=== PATIENT | female | born 1975 | race Caucasian/White ===

== ENCOUNTER 2016-04-30 20:58 | Emergency (ER) | payer OTHER ==
[2016-04-30 21:32] VITALS: BP 126/72
--- NOTE | 2016-04-30 21:56 | UC ---
Lower Extremity/Ankle HPI - HPI Summary HPI Summary: dropped shop vac on her left foot last night, with swelling and pain. Today she has persistent pain with weight bearing despite ibuprofen, last used 400mg several hours ago. Feels unable to weight bear and is concerned about causing more harm by poor weight bearing. - History of Current Complaint Chief Complaint: UCLowerExtremity Stated Complaint: LEFT FOOT PAIN/INJURY Time Seen by Provider: 04/30/16 21:44 Hx Obtained From: Patient Hx Last Menstrual Period: 2 weeks ?: No Onset/Duration: Sudden Onset, Lasting Days - 1 Severity Initially: Moderate Severity Currently: Moderate Pain Intensity: 7 Pain Scale Used: 0-10 Numeric Aggravating Factor(s): Standing, Ambulation Alleviating Factor(s): Rest, OTC Meds Able to Bear Weight: Yes - Risk Factors Gout Risk Factors: Negative DVT Risk Factors: Negative - Allergies/Home Medications Allergies/Adverse Reactions: Allergies Allergy/AdvReac Type Severity Reaction Status Date / Time Chocolate Allergy Hives Verified 04/30/16 21:32 seasonal Allergy Itching Uncoded 04/30/16 21:32 PMH/Surg Hx/FS Hx/Imm Hx Respiratory History Of: Reports: Asthma GI/ History Of: Reports: Gastroesophageal Reflux Psychological History Of: Reports: Anxiety, Depression - Surgical History Surgical History: Yes Surgery Procedure, Year, and Place: gallbladder - Family History Known Family History: Positive: Other - son with autism Negative: Cardiac Disease, Hypertension, Diabetes - Social History 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 Alcohol Use: None Substance Use Type: None Smoking Status (MU): Former Smoker Type: Cigarettes Amount Used/How Often: 1/2 PPD Length of Time of Smoking/Using Tobacco: 15 YEARS Have You Smoked in the Last Year: No When Did the Patient Quit Smoking/Using Tobacco: 2012 - Immunization History Most Recent Influenza Vaccination: no Most Recent Tetanus Shot: 11/2012 Hx Tetanus, Diphtheria Vaccination: Yes Vaccination Up to Date: Yes Review of Systems Constitutional: Negative Skin: Negative Eyes: Negative ENT: Negative Respiratory: Negative Cardiovascular: Negative Gastrointestinal: Negative Genitourinary: Negative Motor: Negative Neurovascular: Negative Musculoskeletal: Arthralgia - left foot pain Neurological: Negative Psychological: Anxious All Other Systems Reviewed And Are Negative: Yes Physical Exam Triage Information Reviewed: Yes Appearance: Well-Appearing, Pain Distress - mild Vital Signs: Initial Vital Signs Temp 99.3 F 04/30/16 21:24 Pulse 74 04/30/16 21:24 Resp 18 04/30/16 21:24 BP 126/72 04/30/16 21:24 ENT Exam: Normal Respiratory Exam: Normal Respiratory: Positive: Lungs clear Cardiovascular Exam: Normal Musculoskeletal: Positive: ROM Intact - full rom in left ankle, subtalar joint. Neurological Exam: Normal Neurological: Positive: Alert Psychological Exam: Normal Skin Exam: Normal Diagnostics - Laboratory Diagnostic Studies Completed/Ordered: pending radiology read, per negative for fracture. Lower Extremity Course/Dx - Course Course Of Treatment: rest, ice, analgesics. - Differential Dx/Diagnosis Differential Diagnosis/HQI/PQRI: Contusion, Fracture (Closed), Sprain Provider Diagnoses: left foot contusion Discharge - Discharge Plan Condition: Stable Disposition: HOME Patient Education Materials: Foot Contusion (ED) Additional Instructions: apply ice 2 or three times per day If there is a difference in the radiology read I will call you tomorrow. Use crutches as needed for support.
--- NOTE | 2016-04-30 22:21 | RAD ---
Indication: Left foot pain and swelling after trauma 3 views of left foot demonstrates no definite fracture. No other bone or joint abnormality is noted. IMPRESSION: No fracture of the foot is noted.
== END 2016-04-30 22:35 | disposition home or self-care (01) ==
LOC: UCCORT 20:58
DX: S90.32XA Contusion of left foot, initial encounter (principal); W20.8XXA Other cause of strike by thrown, projected or falling object, initial encounter; Y93.9 Activity, unspecified; Y92.9 Unspecified place or not applicable; Z87.891 Personal history of nicotine dependence
CPT/HCPCS: 99213; G0463

== ENCOUNTER 2016-09-03 12:20 | Emergency (ER) | payer OTHER ==
[2016-09-03 14:22] VITALS: BP 127/72
[2016-09-03] MEDS ORDERED: cefTRIAXone VIAL(*) 1,000 MG VIAL IM ONE (14:38)
[2016-09-03] MEDS ORDERED: Lidocaine 1% MPF* 2 ML VIAL INJ ONE (14:39)
--- NOTE | 2016-09-03 14:45 | UC ---
Skin Complaint HPI - HPI Summary HPI Summary: pt presents with c/o of bilateral pilonidal cysts that began 1 week ago. pt reports that cysts have worsened since onset 1 week ago and now has c/o of chills, increased pain, and malaise. - History of Current Complaint Chief Complaint: UCSkin Time Seen by Provider: 09/03/16 14:26 Stated Complaint: SKIN CONCERN Hx Obtained From: Patient Hx Last Menstrual Period: 1 wk ago ?: No Onset/Duration: Gradual Onset, Lasting Days - 7 Skin Exposure Onset/Duration: Days Ago - 7 Timing: Constant Onset Severity: Mild Current Severity: Moderate Location: Discrete - upper buttocks, pilonidal Character: Painful Aggravating: Touch Associated Signs & Symptoms: Positive: Fever, Chills, Tenderness - Allergy/Home Medications Allergies/Adverse Reactions: Allergies Allergy/AdvReac Type Severity Reaction Status Date / Time Adhesive Tape Allergy Rash Verified 09/03/16 14:09 Chocolate Allergy Hives Verified 09/03/16 14:09 seasonal Allergy Itching Uncoded 09/03/16 14:09 Home Medications: Home Medications FLUoxetine CAP* [PROzac CAP*] 20 mg PO DAILY 09/03/16 [History Confirmed ] Mometasone NASAL (NF) [Nasonex (NF)] 1 spray BOTH NARES DAILY 09/03/16 [History Confirmed 09/03/16] Review of Systems Constitutional: Fever, Chills Skin: Other - pilonidal cysts Eyes: Negative ENT: Negative Respiratory: Negative Cardiovascular: Negative Gastrointestinal: Negative Genitourinary: Negative Motor: Negative Neurovascular: Negative Musculoskeletal: Negative Neurological: Negative Psychological: Negative All Other Systems Reviewed And Are Negative: Yes PMH/Surg Hx/FS Hx/Imm Hx Previously Healthy: Yes - anxiety Psychological History: Anxiety - Surgical History Surgical History: Yes Surgery Procedure, Year, and Place: gallbladder - Family History Known Family History: Positive: Unknown, Other - son with autism Negative: Cardiac Disease, Hypertension, Diabetes - Social History Alcohol Use: None Substance Use Type: None Smoking Status (MU): Former Smoker Type: Cigarettes Amount Used/How Often: 1/2 PPD Length of Time of Smoking/Using Tobacco: 15 YEARS Have You Smoked in the Last Year: No When Did the Patient Quit Smoking/Using Tobacco: 2012 - Immunization History Most Recent Influenza Vaccination: no Most Recent Tetanus Shot: 11/2012 Hx Tetanus, Diphtheria Vaccination: Yes Vaccination Up to Date: Yes Physical Exam Triage Information Reviewed: Yes Appearance: Ill-Appearing Vital Signs: Initial Vital Signs Temp 100.2 F 09/03/16 14:12 Pulse 97 09/03/16 14:12 Resp 16 09/03/16 14:12 BP 127/72 09/03/16 14:12 Pulse Ox 100 09/03/16 14:12 Vital Signs Reviewed: Yes Eye Exam: Normal Neck exam: Normal Respiratory Exam: Normal Cardiovascular: Positive: Tachycardia - 97 Musculoskeletal Exam: Normal Neurological Exam: Normal Psychological Exam: Normal Skin Exam: Other - firm fluctuant 3 cm long and 2 cm wide pilonidal cysts bialteral upper buttocks Course/Dx - Differential Diagnoses - Skin Complaint Differential Diagnoses: Abscess, Other - sepsis - Diagnoses Provider Diagnoses: pilonidal cysts. possible sepsis - Physician Notification/Consults Discussed Patient Care With: Dr. Buckner at [facility] @ 7110 Time Discussed With Above Provider: 14:48 Instructed by Provider To: Transfer - to [facility] accpeted by Dr. Buckner Discharge - Discharge Plan Condition: Stable Disposition: [facility] Discharge Disposition Comment: pt was referred to [facility] for further work up for sepsis. Patient Education Materials: Pilonidal Cyst (ED), Acute Wounds (ED) Referrals: Mynor Sesay [Primary Care Provider] - If Needed
== END 2016-09-03 14:54 | disposition short-term general hospital (02) ==
LOC: UCCORT 12:20
DX: L05.91 Pilonidal cyst without abscess (principal); F41.9 Anxiety disorder, unspecified; Z90.49 Acquired absence of other specified parts of digestive tract; Z87.891 Personal history of nicotine dependence
CPT/HCPCS: 99213; G0463

== ENCOUNTER 2017-01-22 08:11 | Emergency (ER) | payer OTHER ==
[2017-01-22 08:55] VITALS: BP 100/64
[2017-01-22] MEDS ORDERED: Penicillin G Benzathine 1.2MU* 1,200,000 UNITS/2 ML SYR IM ONE (09:12)
--- NOTE | 2017-01-22 09:12 | UC ---
Throat Pain/Nasal [place] HPI - HPI Summary HPI Summary: SORE THROAT SINCE YESTERDAY. PAINFUL TO SWALLOW.NO COUGH. FELT FEVERISH LAST NIGHT. NO VOMITING. - History of Current Complaint Chief Complaint: UCRespiratory Stated Complaint: SORE THROAT Time Seen by Provider: 01/22/17 08:26 Hx Obtained From: Patient Hx Last Menstrual Period: 01/09/17 Onset/Duration: Sudden Onset, Lasting Days Severity: Moderate Associated Signs & Symptoms: Positive: Dysphagia, Fever - Allergies/Home Medications Allergies/Adverse Reactions: Allergies Allergy/AdvReac Type Severity Reaction Status Date / Time Adhesive Tape Allergy Rash Verified 01/22/17 08:42 Chocolate Allergy Hives Verified 01/22/17 08:42 seasonal Allergy Itching Uncoded 01/22/17 08:42 PMH/Surg Hx/FS Hx/Imm Hx Previously Healthy: Yes - Surgical History Surgical History: Yes Surgery Procedure, Year, and Place: gallbladder - Family History Known Family History: Positive: Unknown, Other - son with autism Negative: Cardiac Disease, Hypertension, Diabetes - Social History Alcohol Use: None Substance Use Type: None Smoking Status (MU): Former Smoker Type: Cigarettes Amount Used/How Often: 1/2 PPD Length of Time of Smoking/Using Tobacco: 15 YEARS Have You Smoked in the Last Year: No When Did the Patient Quit Smoking/Using Tobacco: 2012 - Immunization History Most Recent Influenza Vaccination: no Most Recent Tetanus Shot: 11/2012 Hx Tetanus, Diphtheria Vaccination: Yes Vaccination Up to Date: Yes Review of Systems Constitutional: Fever, Fatigue Skin: Negative Eyes: Negative ENT: Sore Throat Respiratory: Negative Cardiovascular: Negative Gastrointestinal: Negative Genitourinary: Negative Motor: Negative Neurovascular: Negative Musculoskeletal: Negative Neurological: Negative Psychological: Negative Is Patient Immunocompromised?: No All Other Systems Reviewed And Are Negative: Yes Physical Exam Triage Information Reviewed: Yes Appearance: Well-Nourished, Ill-Appearing, Pain Distress Vital Signs: Initial Vital Signs Temp 98.7 F 01/22/17 08:43 Pulse 88 01/22/17 08:43 Resp 16 01/22/17 08:43 BP 100/64 01/22/17 08:43 Pulse Ox 98 01/22/17 08:43 Vital Signs Reviewed: Yes Eye Exam: Normal Eyes: Positive: Conjunctiva Clear ENT: Positive: Pharyngeal erythema, Tonsillar swelling, Tonsillar exudate Dental Exam: Normal Neck exam: Normal Neck: Positive: Supple, Nontender, No Lymphadenopathy Respiratory Exam: Normal Respiratory: Positive: Chest non-tender, Lungs clear, Normal breath sounds Cardiovascular Exam: Normal Cardiovascular: Positive: RRR, No Murmur, Pulses Normal Abdominal Exam: Normal Abdomen Description: Positive: Nontender, No Organomegaly, Soft Bowel Sounds: Positive: Present Musculoskeletal Exam: Normal Musculoskeletal: Positive: Strength Intact, ROM Intact, No Edema Neurological Exam: Normal Neurological: Positive: Alert, Muscle Tone Normal Psychological Exam: Normal Skin Exam: Normal Throat Pain/Nasal Course/Dx - Course Course Of Treatment: hx obtained, exam performed, meds reveiwed, rapid strep is positive, treated - Differential Dx/Diagnosis Differential Diagnosis/HQI/PQRI: Otitis Media, Pharyngitis, URI Provider Diagnoses: Strep Pharyngitis Discharge - Discharge Plan Condition: Stable Disposition: HOME Patient Education Materials: Strep Throat (ED) Additional Instructions: You received a shot of penicillin for your infection today you received a shot of toradol as well, do not take any Ibuprofen products until after 5 pm today. Increase fluid intake and get plenty of rest
[2017-01-22] MEDS ORDERED: Ketorolac INJ* 60 MG/2 ML VIAL IM ONE (09:14)
== END 2017-01-22 09:53 | disposition home or self-care (01) ==
LOC: UCCORT 08:11
DX: J02.0 Streptococcal pharyngitis (principal); J30.2 Other seasonal allergic rhinitis; Z91.048 Other nonmedicinal substance allergy status; Z91.018 Allergy to other foods; Z87.891 Personal history of nicotine dependence
CPT/HCPCS: 87651; 96372; 99212; G0463; J0558; J1885